=== PATIENT | male | born 1990 | race Caucasian/White ===

== ENCOUNTER 2016-11-08 17:21 | Emergency (ER) | payer OTHER ==
[2016-11-08 17:52] VITALS: BP 153/81
--- NOTE | 2016-11-08 18:03 | UC ---
Skin Complaint HPI - HPI Summary HPI Summary: 26 YEAR OLD MALE PRESENTS WITH RASH ON HIS RIGHT ARM AND LEG - History of Current Complaint Chief Complaint: [facility] Time Seen by Provider: 11/08/16 18:01 Stated Complaint: RASH Hx Obtained From: Patient Onset/Duration: Lasting Days Onset Severity: Moderate Current Severity: Moderate Pain Scale Used: 0-10 Numeric - 2 - Allergy/Home Medications Allergies/Adverse Reactions: Allergies Allergy/AdvReac Type Severity Reaction Status Date / Time Sulfa Drugs Allergy Unknown Unknown Verified 11/08/16 17:52 Reaction Details Home Medications: Home Medications Allopurinol TAB* [Zyloprim 100 MG TAB*] 100 mg PO DAILY 11/08/16 [History Confirmed 11/08/16] Review of Systems Constitutional: Negative Skin: Rash Eyes: Negative ENT: Negative Respiratory: Negative Cardiovascular: Negative Gastrointestinal: Negative Genitourinary: Negative Motor: Negative Neurovascular: Negative Musculoskeletal: Negative Neurological: Negative Psychological: Negative All Other Systems Reviewed And Are Negative: Yes PMH/Surg Hx/FS Hx/Imm Hx - Surgical History Surgical History: Yes Surgery Procedure, Year, and Place: TONSILLECTOMY AND ADENOIDECTOMY A CHILD. ear tubes as a child. left knee surgery - Family History Known Family History: Positive: None - Social History Alcohol Use: Rare Substance Use Type: Marijuana Substance Use Comment - Amount & Last Used: daily Smoking Status (MU): Light Every Day Tobacco Smoker Amount Used/How Often: a couple sig a week Have You Smoked in the Last Year: Yes - Immunization History Most Recent Influenza Vaccination: none Physical Exam Triage Information Reviewed: Yes Vital Signs: Initial Vital Signs Temp 36.8 C 11/08/16 17:47 Pulse 94 11/08/16 17:47 Resp 16 11/08/16 17:47 BP 153/81 11/08/16 17:47 Pulse Ox 98 11/08/16 17:47 Vital Signs Reviewed: Yes Eye Exam: Normal ENT Exam: Normal Dental Exam: Normal Neck exam: Normal Neck: Positive: 1 Respiratory Exam: Normal Cardiovascular Exam: Normal Abdominal Exam: Normal Musculoskeletal Exam: Normal Neurological Exam: Normal Psychological Exam: Normal Skin: Positive: rashes Course/Dx - Diagnoses Provider Diagnoses: CONTACT DERMATITIS Discharge - Discharge Plan Condition: Stable Disposition: HOME Prescriptions: Methylprednisolone [Medrol Dosepak 4 MG*] 4 mg PO .SEE LORENA INSTRUCTION #21 tab Triamcinolone 0.1% CREAM(NF) [Kenalog Cream 0.1%(NF)] 1 applic TOPICAL TID #90 gm Patient Education Materials: Acute Rash (ED), Dermatitis (ED) Referrals: Eugene Gonzalez MD [Primary Care Provider] -
== END 2016-11-08 18:20 | disposition home or self-care (01) ==
LOC: UCEAST 17:21
DX: L25.9 Unspecified contact dermatitis, unspecified cause (principal); Z88.2 Allergy status to sulfonamides; F17.210 Nicotine dependence, cigarettes, uncomplicated; F12.90 Cannabis use, unspecified, uncomplicated
CPT/HCPCS: 99212; G0463